=== PATIENT | female | born 1995 | race Caucasian/White ===

== ENCOUNTER → 2022-05-28 15:02 | Outpatient (BNVA) | payer BC, SELFPAY | PROVIDERS: Visit Provider Emergency Medicine | DX: Z20.822 Contact with and (suspected) exposure to COVID-19 (principal); B34.9 Viral infection, unspecified; J02.9 Acute pharyngitis, unspecified | CPT/HCPCS: 87071; 87635; 87880 ==

== ENCOUNTER → 2023-03-05 10:09 | Outpatient (BNVA) | payer BC, SELFPAY | PROVIDERS: Visit Provider Nurse Practitioner Family | DX: R09.82 Postnasal drip (principal); J02.8 Acute pharyngitis due to other specified organisms; B97.89 Other viral agents as the cause of diseases classified elsewhere | CPT/HCPCS: 87071; 87880 ==

== ENCOUNTER → 2023-04-15 17:41 | Outpatient (BNVA) | payer BC, SELFPAY | PROVIDERS: PCP Obstetrics & Gynecology; Visit Provider Family Medicine | DX: R06.02 Shortness of breath (principal); O90.3 Peripartum cardiomyopathy | CPT/HCPCS: 71046 ==

== ENCOUNTER → 2023-08-07 16:02 | Outpatient (BNVA) | payer BC, SELFPAY | PROVIDERS: Visit Provider Nurse Practitioner Family | DX: R00.2 Palpitations (principal); R06.02 Shortness of breath; R53.83 Other fatigue; E16.2 Hypoglycemia, unspecified; R63.5 Abnormal weight gain; O90.3 Peripartum cardiomyopathy; R53.82 Chronic fatigue, unspecified; M25.551 Pain in right hip; M25.552 Pain in left hip; M25.511 Pain in right shoulder; M25.512 Pain in left shoulder | CPT/HCPCS: 80053; 83036; 83880; 84439; 84443; 84480 ==

== ENCOUNTER → 2023-08-11 10:58 | Outpatient (BNVA) | payer BC, SELFPAY | PROVIDERS: PCP Nurse Practitioner; Referring Provider Nurse Practitioner; Visit Provider Nurse Practitioner | DX: M25.551 Pain in right hip (principal); M25.552 Pain in left hip | CPT/HCPCS: 73523 ==

== ENCOUNTER 2023-08-24 14:07 | Outpatient (CLI) | payer BC, MEDICAID, SELFPAY ==
--- NOTE | 2023-08-24 14:00 | USCV_ITS ---
Abby Rosales Age: 27 Gender: F : 1995 Exam Date: 08/24/2023 14:31 Ordering Phys: Ambrose Vila MD ([email or web address]) Technologist: Saloni Flores Exam Location: [facility] [place] Indication: CARDIOMYOPATHY POST . PALP BP: / HR: 60 Rhythm: Sinus Technical Quality: Adequate MEASUREMENTS (Male / Female) Normal Values 2D ECHO LV Diastolic Diameter PLAX 4.1 cm 4.2 - 5.9 / 3.9 - 5.3 cm LV Systolic Diameter PLAX 3.2 cm LV Chamber Size 4.9 cm IVS Diastolic Thickness 0.8 cm 0.6 - 1.0 / 0.6 - 0.9 cm IVS Systolic Thickness 1.2 cm LVPW Diastolic Thickness 1.5 cm 0.6 - 1.0 / 0.6 - 0.9 cm LVPW Systolic Thickness 1.4 cm RV Chamber Size 3.7 cm LVOT Diameter 2.0 cm LV Ejection Fraction 2D Teich 42.1 % LV Ejection Fraction MOD 2C 47.9 % LV Ejection Fraction 2C AL 39.8 % LA Diameter 2.7 cm LA Width 2.6 cm LA Height 3.5 cm RA Width 2.8 cm RA Height 3.5 cm Aorta at Sinotubular Diameter 2.7 cm IVC Diameter 1.4 cm M-MODE Aortic Annulus Diameter 3.4 cm LA Ao Ratio MM 0.7 MV E Point Septal Separation 0.3 cm DOPPLER AV Peak Velocity 123.0 cm/s LVOT Peak Velocity 103.0 cm/s AV Area Cont Eq vti 2.5 cm squared AV Area Cont Eq pk 2.7 cm squared MV Area PHT 4.0 cm squared Mitral E to A Ratio 1.6 MV E' Velocity 56.5 cm/s Mitral E to MV E' Ratio 7.8 Mitral E to LV E' Lateral Ratio 6.5 Mitral E to LV E' Septal Ratio 9.9 TR Peak Velocity 114.4 cm/s TR Peak Gradient 5.2 mmHg TR Mean Velocity 87.2 cm/s TR Mean Gradient 3.2 mmHg TR Velocity Time Integral 24.5 cm TV Peak E Velocity 70.0 cm/s Right Atrial Pressure 3.0 mmHg Pulmonary Artery Systolic Pressu 8.2 mmHg RV Acceleration Time 0.2 s RV Ejection Time 0.3 s RV AcT/ET 0.6 FINDINGS Left Ventricle Normal left ventricular size and systolic function, EF 56 %. No regional wall motion abnormalities. Right Ventricle The right ventricle is normal in size and function. Right Atrium The right atrium is normal in size. Left Atrium The left atrium is normal in size. Mitral Valve No gross abnormalities noted Aortic Valve No gross abnormalities noted Tricuspid Valve Trace tricuspid valve regurgitation. Pulmonic Valve Mild pulmonary valve regurgitation. Pericardium Normal pericardium without effusion. Aorta Normal ascending aorta dimension. IVC Normal inferior vena cava. CONCLUSIONS Normal left ventricular size and systolic function, EF 56 %. No regional wall motion abnormalities. Mild pulmonary valve regurgitation. Trace tricuspid valve regurgitation. There is no pericardial effusion. There are no intracardiac masses. No similar previous studies are available for comparison Dr Ambrose Vila MD FACC (Electronically Signed) Final Date: 26 August 2023 12:38 S
== END 2023-08-24 14:08 | disposition home or self-care (01) ==
LOC: RAD 14:09
PROVIDERS: PCP Nurse Practitioner; Visit Provider Internal Medicine Cardiovascular Disease
DX: O90.3 Peripartum cardiomyopathy (principal); R06.09 Other forms of dyspnea; R00.2 Palpitations; I37.1 Nonrheumatic pulmonary valve insufficiency
CPT/HCPCS: 93306

== ENCOUNTER → 2023-12-08 16:05 | Outpatient (BNVA) | payer BC, MEDICAID, SELFPAY | PROVIDERS: PCP Nurse Practitioner; Visit Provider Nurse Practitioner | DX: J02.9 Acute pharyngitis, unspecified (principal) | CPT/HCPCS: 87880 ==